=== PATIENT | male | born 1975 | race Caucasian/White ===

== ENCOUNTER 2019-02-01 14:25 | Day surgery (SDC) | payer OTHER ==
[~2019-02-01] VITALS: Ht 172.7 cm; Wt 73.8 kg
[2019-02-01 15:17] VITALS: Ht 172.7 cm; Wt 73.8 kg
[2019-02-01 16:04] VITALS: BP 117/60; PULSE 65; RESP 16
--- NOTE | 2019-02-01 16:45 | PREAC ---
Date/Time of Note Date/Time of Note DATE: 02/01/19 TIME: 16:44 Anesthesia Eval and Record Evaluation Time Pre-Procedure Interview DATE: 02/01/19 TIME: 16:44 Age 43 Sex male NPO: 8 hrs Preoperative diagnosis HEMATOCHEZIA Planned procedure COLONOSCOPY WITH BIOPSIES Past Medical History Past Medical History: Includes Recreational drugs: Marijuana Surgery & Anesthesia Issues No known issue Meds Anticoagulation: No Beta Stephanie within 24 hr: No Reason Beta Stephanie not given: Pt. not on B-Stephanie Reported Medications [None] No Conflict Check 02/01/19 Meds reviewed: Yes Allergies Coded Allergies: No Known Allergy (Unverified , 02/01/19) Allergies Reviewed: Yes Labs/Studies Labs Reviewed: Reviewed by anesthesiologist test: N/A Pre-procedure Exam Last vitals Vital Signs Date Temp Pulse Resp B/P (MAP) Pulse Ox O2 O2 Flow FiO2 Time Delivery Rate 02/01/19 98.5 65 16 117/60 99 Room Air 16:04 (79) Airway: Adequate mouth opening, Adequate thyromental dist Mallampati: Mallampati II Teeth: Normal Lung: Normal Heart: Normal ASA Physical Status ASA physical status: 2 Emergency: None Planned Anesthetic General/MAC: MAC Planned Pain Management Parenteral pain med Pre-operative Attestations Prior to commencing anesthesia and surgery, the patient was re-evaluated, there was verification of: *The patient's identity *The results of appropriate recent lab work and preoperative vital signs *The above evaluation not changing prior to induction *Anesthetic plan, risk benefits, alternative and complications discussed with patient/family; questions answered; patient/family understands, accepts and wishes to proceed. Michael Roldan M.D. Feb 01, 2019 16:45
[2019-02-01] MEDS ORDERED: LIDOCAINE 100 MG SYRINGE ONE (16:46)
[2019-02-01] MEDS ORDERED: PROPOFOL 40 ML ONE (16:46)
--- NOTE | 2019-02-01 17:04 | PAC ---
Date/Time of Note Date/Time of Note DATE: 02/01/19 TIME: 17:04 Post-Anesthesia Notes Post-Anesthesia Note Last documented vital signs Vital Signs Date Temp Pulse Resp B/P (MAP) Pulse Ox O2 O2 Flow FiO2 Time Delivery Rate 02/01/19 98.5 65 16 117/60 99 Room Air 16:04 (79) Activity: WNL Respiratory function: WNL Cardiovascular function: WNL Mental status: Baseline Pain reasonably controlled: Yes Hydration appropriate: Yes Nausea/Vomiting absent: Yes Michael Roldan M.D. Feb 01, 2019 17:04
== END 2019-02-01 17:50 | disposition home or self-care (01) ==
LOC: GIL 14:25
PROVIDERS: ATTEND Internal Medicine Gastroenterology
DX: K92.1 Melena (principal); K64.8 Other hemorrhoids
CPT/HCPCS: 45378; J2001; Z7610